=== PATIENT | male | born 1980 | race Caucasian/White ===

== ENCOUNTER 2016-10-26 15:00 | Emergency (ER) | payer OTHER ==
[2016-10-26] MEDS ORDERED: ONDANSETRON 4 MG VIAL ONE (15:54)
[2016-10-26] MEDS ORDERED: DILAUDID 1 MG/ML AMP ONE (15:55)
[2016-10-26] MEDS ORDERED: SODIUM CHLORIDE 0.9% 1,000 ML ONE ×2 (15:56→17:10)
[2016-10-26] MEDS ORDERED: KETOROLAC 30 MG/ML VIAL ONE (15:56)
== END 2016-10-26 18:43 | disposition home or self-care (01) ==
LOC: ER 15:28
DX: N13.2 Hydronephrosis with renal and ureteral calculous obstruction (principal)
CPT/HCPCS: 36415; 74176; 80053; 81001; 85025; 96361; 96374; 96375

== ENCOUNTER 2016-11-04 10:26 | Emergency (ER) | payer OTHER ==
[2016-11-04] MEDS ORDERED: ONDANSETRON 4 MG VIAL ONE (11:53)
[2016-11-04] MEDS ORDERED: DILAUDID 1 MG/ML AMP ONE (11:53)
[2016-11-04] MEDS ORDERED: SODIUM CHLORIDE 0.9% 500 ML IV ONE (11:54)
[2016-11-04] MEDS ORDERED: KETOROLAC 30 MG/ML VIAL ONE (11:54)
== END 2016-11-04 15:32 | disposition home or self-care (01) ==
LOC: ER 10:26
DX: N20.1 Calculus of ureter (principal); N23 Unspecified renal colic
CPT/HCPCS: 36415; 74000; 80053; 81003; 83690; 85025; 96361; 96374; 96375